=== PATIENT | female | born 1935 | race Caucasian/White ===

== ENCOUNTER → 2016-12-16 | Outpatient (CLI) | payer MEDICARE ==
[~2016-12-16] MED LIST: ASPI1POW; ASPIRIN 81M81 MG/TA2 PO; CALCIUM CITRAT200 MG PO; CALCIUM1 CAP PO; CARDIZEM CD 12120 MG PO; CENTRUM1 TAB PO; FA-80.8 MG PO; FOLIC ACID 40400 MCG PO; K-DUR 10 MEQ T10 MEQ PO; LEVOTHYROXINE0.05 MG PO; LIPITOR 10MG10 MG PO; MICROZIDE12.5 MG PO; SYNTHROID0.05 MG/TA PO; TRICOR 48MG48 MG PO; TRICOR48 MG PO
== END ==
LOC: SUN.DIA 08:40
DX: E11.65 Type 2 diabetes mellitus with hyperglycemia (principal); Z68.24 Body mass index [BMI] 24.0-24.9, adult; Z71.3 Dietary counseling and surveillance
CPT/HCPCS: G0108

== ENCOUNTER → 2016-12-24 | Outpatient (CLI) | payer MEDICARE | LOC: SUN.DIA 09:28 | DX: E11.65 Type 2 diabetes mellitus with hyperglycemia (principal); Z71.3 Dietary counseling and surveillance | CPT/HCPCS: G0109 ==

== ENCOUNTER → 2016-12-31 | Outpatient (CLI) | payer MEDICARE | LOC: SUN.DIA 11:01 | DX: E11.65 Type 2 diabetes mellitus with hyperglycemia (principal); Z71.3 Dietary counseling and surveillance | CPT/HCPCS: G0109 ==

== ENCOUNTER → 2017-01-06 | Outpatient (CLI) | payer MEDICARE | LOC: SUN.DIA 09:23 | DX: E11.65 Type 2 diabetes mellitus with hyperglycemia (principal); Z71.3 Dietary counseling and surveillance ==

== ENCOUNTER → 2017-01-07 | Outpatient (CLI) | payer MEDICARE | LOC: SUN.DIA 08:24 | DX: E11.65 Type 2 diabetes mellitus with hyperglycemia (principal); Z71.3 Dietary counseling and surveillance | CPT/HCPCS: G0109 ==

== ENCOUNTER → 2017-01-14 | Outpatient (CLI) | payer MEDICARE | LOC: SUN.DIA 10:41 | DX: E11.65 Type 2 diabetes mellitus with hyperglycemia (principal); Z71.3 Dietary counseling and surveillance | CPT/HCPCS: G0109 ==

== ENCOUNTER 2017-08-27 16:24 | Inpatient (IN) | payer MEDICARE ==
[~2017-08-27] VITALS: Ht 157.5 cm; Wt 57.6 kg
[~2017-08-27 16:24] MED LIST changes: +CALCIUM 600MG+D1 TAB PO; -CALCIUM1 CAP PO; -CARDIZEM CD 12120 MG PO; +CARDIZEM CD 24240 MG PO; +COUMADIN 3MG3 MG/TAB PO
[2017-08-27] MEDS ORDERED: ULTRAM 50MG TAB50 MG PO (17:25)
[2017-08-27 17:27] VITALS: BP 116/65; PULSE 64; TEMP 97.4
[2017-08-27] MEDS ORDERED: LOFIBRA54 MG PO (18:00)
[2017-08-27] MEDS ORDERED: SYSTANE 0.4%-0.1 SOL OP (18:02)
[2017-08-27] MEDS ORDERED: FIBERCON PO (18:03)
[2017-08-27] MEDS ORDERED: COLACE 100100 MG/CAP PO (18:03)
[2017-08-27] MEDS ORDERED: NORCO 325 MG-51 TAB PO (18:04)
[2017-08-27] MEDS ORDERED: NEURONTIN300 MG/CAP PO (18:04)
[2017-08-28 03:16] VITALS: BP 117/80; PULSE 102; TEMP 98.7
[2017-08-28 15:18] VITALS: BP 123/67; PULSE 74; TEMP 97.5
[2017-08-29 05:41] VITALS: BP 117/47; PULSE 69; TEMP 98.1
[2017-08-29 16:44] VITALS: BP 109/52; PULSE 75; TEMP 97.6
[2017-08-30 06:30] VITALS: BP 112/63; PULSE 77; TEMP 98.2
[2017-08-30 18:12] VITALS: BP 112/48; PULSE 69; TEMP 98.3
[2017-08-31 06:20] VITALS: BP 125/62; PULSE 89; TEMP 97.5
[2017-08-31 10:01] LABS: BASO # 0.1 (0.0-0.2); BASO % 0.9 % (0.0-2.0); EOS # 0.2 (0.0-0.7); EOS % 3.8 % (0-4.0); GRAN # 3.8 (1.4-6.5); GRAN % 71.6 % (42.2-75.2); LYMPH # 0.8 (1.2-3.4); LYMPH % 15.8 % (20.0-51.0); MEAN CELL VOLUME 83 fl (80.0-100.0); MEAN CORPUSCULAR HGB CONC 31 g/dl (33.0-37.0); MEAN PLATELET VOLUME 10.8 fl (7.4-10.4); MONO # 0.4 (0.1-0.6); MONO % 7.5 % (1.7-9.3); PLATELET COUNT 291 K/mm3 (130-400); RED BLOOD COUNT 4.18 M/mm3 (4.10-5.30); WHITE BLOOD COUNT 5.3 K/mm3 (4.8-10.8)
[2017-08-31 10:02] LABS: HEMATOCRIT 34.5 % (37.0-47.0); HEMOGLOBIN 10.7 g/dl (12.5-16.0); MEAN CORPUSCULAR HEMOGLOBIN 26 pg (27.0-31.0)
[2017-08-31 10:06] LABS: INR 1.9 (0.8-3.0); PROTHROMBIN TIME 22.1 SECONDS (9.7-12.8)
[2017-08-31 16:02] VITALS: BP 133/71; PULSE 64; TEMP 97.7
[2017-09-01 06:24] VITALS: BP 117/60; PULSE 62; TEMP 98.5
[2017-09-01 07:57] LABS: PROTHROMBIN TIME 22.9 SECONDS (9.7-12.8)
[2017-09-01 16:05] VITALS: BP 136/64; PULSE 69; TEMP 97.5
[2017-09-02 05:42] VITALS: BP 126/50; PULSE 71; TEMP 99.6
[2017-09-02 07:04] LABS: INR 2.2 (0.8-3.0); PROTHROMBIN TIME 24.9 SECONDS (9.7-12.8)
[2017-09-02 15:43] VITALS: BP 120/49; PULSE 70; TEMP 97.7
[2017-09-03 04:08] VITALS: BP 110/62; PULSE 67; TEMP 98.1
[2017-09-03 07:32] LABS: INR 2.2 (0.8-3.0); PROTHROMBIN TIME 24.9 SECONDS (9.7-12.8)
[2017-09-03 17:33] VITALS: BP 121/50; PULSE 70; TEMP 97.8
[2017-09-04 05:19] VITALS: BP 113/61; PULSE 63; TEMP 98.1
[2017-09-04 08:03] LABS: INR 2.2 (0.8-3.0); PROTHROMBIN TIME 25.2 SECONDS (9.7-12.8)
[2017-09-04 17:12] VITALS: BP 152/58; PULSE 88; TEMP 97.6
[2017-09-05 06:00] VITALS: BP 118/83; PULSE 78; TEMP 97.6
[2017-09-05 07:40] LABS: INR 2.5 (0.8-3.0); PROTHROMBIN TIME 28.9 SECONDS (9.7-12.8)
[2017-09-05 15:48] VITALS: BP 107/56; PULSE 57; TEMP 97.2
[2017-09-06 03:42] VITALS: BP 108/47; PULSE 62; TEMP 98.5
[2017-09-06 17:03] VITALS: BP 118/61; PULSE 75; TEMP 97.7
[2017-09-07 04:41] VITALS: BP 104/44; PULSE 41; TEMP 97.5
[2017-09-07 08:30] VITALS: BP 115/58; PULSE 80
[2017-09-07 18:20] VITALS: BP 149/80; PULSE 81; TEMP 97.5
[2017-09-08 05:50] VITALS: BP 113/54; PULSE 67; TEMP 98.4
[2017-09-08 18:09] VITALS: BP 127/67; PULSE 83; TEMP 97.9
[2017-09-09 05:36] VITALS: BP 104/59; PULSE 69; TEMP 97.9
[2017-09-09 06:04] LABS: INR 2.2 (0.8-3.0); PROTHROMBIN TIME 24.9 SECONDS (9.7-12.8)
[2017-09-09 17:37] VITALS: BP 134/68; PULSE 64; TEMP 98.3
[2017-09-10 05:06] VITALS: BP 137/65; PULSE 109; TEMP 97.6
[2017-09-10 16:03] VITALS: BP 146/81; PULSE 84; TEMP 97.5
[2017-09-11 04:06] VITALS: BP 125/56; PULSE 68; TEMP 98.5
[2017-09-11] MEDS ORDERED: DUO-KAPS1 CAP PO (10:00)
[2017-09-11] MEDS ORDERED: COUMADIN 1MG1 MG/TAB PO (10:01)
[2017-09-11] MEDS ORDERED: ULTRAM 50MG TAB50 MG PO (10:01)
== END 2017-09-11 15:40 | disposition home health service (06) | DRG 560 ==
PROVIDERS: Family Medicine; Internal Medicine
DX: Z47.81 Encounter for orthopedic aftercare following surgical amputation (principal); E11.52 Type 2 diabetes mellitus with diabetic peripheral angiopathy with gangrene; E44.0 Moderate protein-calorie malnutrition; E11.621 Type 2 diabetes mellitus with foot ulcer; L97.529 Non-pressure chronic ulcer of other part of left foot with unspecified severity; I48.0 Paroxysmal atrial fibrillation; Z79.01 Long term (current) use of anticoagulants
CPT/HCPCS: 99222-AI; 99232-AI; 99239